=== PATIENT | male | born 1945 | race Caucasian/White ===

== ENCOUNTER → 2024-08-13 | Outpatient (CLI) | payer MEDICARE, OTHER ==
[2024-08-13 09:15] LABS: CALCIUM 9.2 mg/dL (8.3-10.5)
== END ==
LOC: LAB 08:54
PROVIDERS: Internal Medicine Nephrology
DX: M10.379 Gout due to renal impairment, unspecified ankle and foot (principal); N18.4 Chronic kidney disease, stage 4 (severe)